=== PATIENT | female | born 1970 | race Caucasian/White ===

== ENCOUNTER 2016-10-02 15:50 | Emergency (ER) | payer OTHER, BC ==
[2016-10-02 16:05] VITALS: TEMP 99.2
[2016-10-02] MEDS ORDERED: traMADol 50 MG TAB PO STA (16:22)
[2016-10-02] MEDS ORDERED: DIAZEPAM 5 MG TAB PO STA (16:22)
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
--- NOTE | 2016-10-02 18:51 | XR ---
EXAMINATION TYPE: XR thoracic spine complete DATE OF EXAM: 10/02/2016 COMPARISON: NONE HISTORY: Pain TECHNIQUE: 3 views FINDINGS: Vertebra have normal spacing and alignment. Posterior elements are intact. There is no para spinal mass. IMPRESSION: Normal thoracic spine.
[2016-10-02 19:21] VITALS: BP 138/95; PULSE 70; RESP 18
== END 2016-10-02 19:21 | disposition home or self-care (01) ==
LOC: EC 15:50
DX: S09.93XA Unspecified injury of face, initial encounter (principal); M54.2 Cervicalgia; R51 Headache; M54.6 Pain in thoracic spine; Z79.899 Other long term (current) drug therapy; Z88.6 Allergy status to analgesic agent; V89.2XXA Person injured in unspecified motor-vehicle accident, traffic, initial encounter; Y92.89 Other specified places as the place of occurrence of the external cause
CPT/HCPCS: 70450; 72072; 72125; 99284

== ENCOUNTER → 2018-03-11 | Outpatient (CLI) | payer BC ==
--- NOTE | 2018-03-17 10:20 | MM ---
Reason for exam: screening (asymptomatic). Last mammogram was performed 3 years and 11 months ago. History: Family history of breast cancer in maternal grandmother and breast cancer in mother at age 79. Physical Findings: A clinical breast exam by your physician is recommended on an annual basis and results should be correlated with mammographic findings. MG 3D Screening Mammo W/Cad Bilateral CC and MLO view(s) were taken. Prior study comparison: April 16, 2014, bilateral MG screening mammo w CAD. January 03, 2012, bilateral digital screening mammo w/CAD. The breast tissue is heterogeneously dense. This may lower the sensitivity of mammography. No significant changes when compared with prior studies. ASSESSMENT: Negative, BI-RAD 1 RECOMMENDATION: Routine screening mammogram of both breasts in 1 year.
== END ==
LOC: RADMAMWWP 16:32
PROVIDERS: ATTEND Obstetrics & Gynecology
DX: Z12.31 Encounter for screening mammogram for malignant neoplasm of breast (principal)
CPT/HCPCS: 77063; 77067

== ENCOUNTER → 2019-12-18 | Outpatient (CLI) | payer OTHER ==
--- NOTE | 2019-12-18 15:55 | XR ---
EXAMINATION TYPE: XR chest 2V DATE OF EXAM: 12/18/2019 COMPARISON: NONE HISTORY: Shortness of breath TECHNIQUE: Frontal and lateral views of the chest are obtained. FINDINGS: Scattered senescent parenchymal changes noted. No evidence for infiltrate. No evidence for atelectasis. Heart size is stable. Mediastinal structures are stable and grossly unremarkable. No evidence for hilar prominence. Degenerative changes dorsal spine. IMPRESSION: 1. No evidence for acute pulmonary disease.
[2019-12-18 16:09] LABS: Appearance,Urine Clear (Clear); Bilirubin,Urine Negative (Negative); Blood,Urine Negative (Negative); Color,Urine Yellow; Glucose,Urine (UA) Negative (Negative); Hyaline Casts,Urine 1 /lpf (0-2); Ketones,Urine Negative (Negative); Leukocyte Esterase,Urine Small (Negative); Mucus,Urine Occasional /hpf; Nitrite,Urine Negative (Negative); Protein,Urine Negative (Negative); RBC,Urine 1 /hpf (0-5); Specific Gravity,Urine 1.023 (1.001-1.035); Squamous Epithelial Cell,Urine 2 /hpf (0-4); Urobilinogen,Urine <2.0 mg/dL (<2.0); WBC,Urine 1 /hpf (0-5)
[2019-12-18 16:23] LABS: Basophils % (A) 0 %; Eosinophils # (A) 0.1 k/uL (0-0.7); Eosinophils % (A) 1 %; HCT 38.2 % (34.0-46.0); HGB 12.3 gm/dL (11.4-16.0); Lymphocytes # (A) 2.4 k/uL (1.0-4.8); Lymphocytes % (A) 25 %; MCH 29.4 pg (25.0-35.0); MCHC 32.2 g/dL (31.0-37.0); MCV 91.3 fL (80.0-100.0); Mean Platelet Volume 7.1; Monocytes # (A) 0.4 k/uL (0-1.0); Monocytes % (A) 4 %; Neutrophils # (A) 6.6 k/uL (1.3-7.7); Neutrophils % (A) 68 %; Platelet Count 341 k/uL (150-450); RBC 4.19 m/uL (3.80-5.40); RDW 12.7 % (11.5-15.5); WBC 9.7 k/uL (3.8-10.6)
[2019-12-18 23:53] LABS: African American GFR (CKD) 86.4 (60.0-200.0); Albumin 4.2 g/dL (3.80-4.90); Albumin/Globulin Ratio 1.56 (1.60-3.17); Anion Gap 8.5 mmol/L (4.00-12.00); BUN/Creat Ratio 12.22 Ratio (12.00-20.00); Calcium 9.1 mg/dL (8.7-10.3); Carbon Dioxide 24.5 mmol/L (21.6-31.8); Globulin 2.7 g/dL (1.6-3.3); Non-African American GFR(CKD) 74.6 (60.0-200.0); Potassium 4.3 mmol/L (3.5-5.5); Total Bilirubin 0.2 mg/dL (0.2-1.2); Total Protein 6.9 g/dL (6.2-8.2)
[2019-12-19 02:29] LABS: INR 1.01 (0.90-1.11); Partial Thromboplastin Time 27.6 sec (24.7-29.9); Prothrombin Time 10.8 sec (9.9-11.9)
== END | disposition home or self-care (01) ==
LOC: LABWHC1 15:08
PROVIDERS: ATTEND Neurological Surgery
DX: G93.5 Compression of brain (principal)
CPT/HCPCS: 36415; 71046; 80053; 81001; 85025; 85610; 85730; 93005

== ENCOUNTER → 2021-02-14 | Outpatient (CLI) | payer OTHER ==
--- NOTE | 2021-02-16 10:33 | MM ---
Reason for exam: screening (asymptomatic). Last mammogram was performed 2 years and 11 months ago. History: Family history of breast cancer in maternal grandmother and breast cancer in mother at age 79. Physical Findings: A clinical breast exam by your physician is recommended on an annual basis and results should be correlated with mammographic findings. MG 3D Screening Mammo W/Cad Bilateral CC and MLO view(s) were taken. Prior study comparison: March 11, 2018, bilateral MG 3d screening mammo w/cad. April 16, 2014, bilateral MG screening mammo w CAD. The breast tissue is heterogeneously dense. This may lower the sensitivity of mammography. No significant changes when compared with prior studies. ASSESSMENT: Benign, BI-RAD 2 RECOMMENDATION: Routine screening mammogram of both breasts in 1 year.
== END | disposition home or self-care (01) ==
LOC: RADMAMWWP 15:55
PROVIDERS: ATTEND Obstetrics & Gynecology
DX: Z12.31 Encounter for screening mammogram for malignant neoplasm of breast (principal); Z80.3 Family history of malignant neoplasm of breast
CPT/HCPCS: 77063; 77067

== ENCOUNTER → 2022-08-06 | Outpatient (CLI) | payer OTHER ==
--- NOTE | 2022-08-06 09:13 | US ---
EXAMINATION TYPE: US abdomen complete DATE OF EXAM: 08/06/2022 COMPARISON: NONE CLINICAL INDICATION: Female, 52 years old with history of R1011 ABD PAIN; RUQ pain for 3-4 weeks, lexie sea TECHNIQUE: Multiple sonographic images of the abdomen are obtained. FINDINGS: EXAM MEASUREMENTS: Liver Length: 14.7 cm Gallbladder Wall: 0.2 cm CBD: 0.3 cm Spleen: 9.4 cm Right Kidney: 10.7 x 4.2 x 4.2 cm Left Kidney: 11.0 x 5.2 x 5.0 cm Pancreas: Tail obscured by overlying bowel gas Liver: 2 hyperechoic areas = 2.7 x 2.3 x 2.2cm and 2.3 x 2.1 x 2.1cm Gallbladder: multiple stones Evidence for sonographic Whittaker's sign: no CBD: limited evaluation Spleen: wnl Right Kidney: no evidence of hydronephrosis Left Kidney: no evidence of hydronephrosis Upper IVC: wnl Abd Aorta: wnl The intrahepatic portion of the IVC and proximal abdominal aorta are within normal limits. Common bi le duct is unremarkable. The visualized portions of the pancreas are homogenous. The spleen is unre markable. Kidneys are symmetric and free of hydronephrosis. No renal lesions are seen. IMPRESSION: 1. Hyperechoic hepatic lesions likely reflect hemangiomas. This can be confirmed with a CT of the abd omen utilizing hemangioma protocol. 2. Multiple gallstones.
--- NOTE | 2022-08-06 11:49 | BD ---
EXAMINATION TYPE: Axial Bone Density DATE OF EXAM: 08/06/2022 CLINICAL HISTORY: 52 years old Female. ICD-10 CODE: N951 POST AURELIA SYMPT Height: 63 in Weight: 195 lbs RISK FACTORS HISTORY OF: Active: yes Diet low in dairy products/other sources of calcium: yes If Premenopausal, do you have irregular periods: yes MEDICATIONS: Additional Medications: calcium, multi vit, gabapentin, EXAM MEASUREMENTS: Bone mineral densitometry was performed using the [employer] System. Bone mineral density as measured about the Lumbar spine is: ----- L1-L4(G/cm2): 1.191 T Score Values are as follows: ----- L1: 0.0 ----- L2: -0.3 ----- L3: 0.3 ----- L4: 0.1 ----- L1-L4: 0.1 Z Score Values are as follows: ----- L1: -0.1 ----- L2: -0.4 ----- L3: 0.2 ----- L4: 0.0 ----- L1-L4: 0.0 Bone mineral density baseline Bone mineral density about the R hip (g/cm2): 1.016 Bone mineral density about the L hip (g/cm2): 1.028 T Score values are as follows: -----R Neck: -1.0 -----L Neck: -0.7 -----R Total: 0.1 -----L Total: 0.2 Z Score values are as follows: -----R Neck: -0.6 -----L Neck: -0.2 -----R Total: 0.1 -----L Total: 0.2 Bone mineral density baseline FRAX%s: The graph provided illustrates a 4.9% chance for a major osteoporotic fx and a 0.2% chance fo r the hips probability for fx in 10 years time. IMPRESSION: Normal (Values between +1 and -1 indicate normal bone mass). Consider repeating this study in 5 year s or sooner if there is some new clinical indication. NOTE: T-SCORE=SD OF THE YOUNG ADULT MEAN.
--- NOTE | 2022-08-07 09:52 | MM ---
Reason for Exam: Screening (asymptomatic). Last mammogram was performed 1 year(s) and 6 month(s) ago. Patient History: Menarche at age 12. First Full-Term at age 25. Maternal grandmother had breast cancer. Mother had breast cancer, age 79. Last menstrual period: Risk Values: Meredith 5 year model risk: 2.2%. NCI Lifetime model risk: 16.1%. Prior Study Comparison: 04/16/2014 Bilateral Screening Mammogram, [facility]. 03/11/2018 Bilateral Screening Mammogram, [facility]. 02/14/2021 Bilateral Screening Mammogram, [facility]. Tissue Density: The breast tissue is heterogeneously dense. This may lower the sensitivity of mammography. Findings: Analyzed By CAD. Pattern appears symmetrical and stable. No significant interval changes are evident. Chronic nodularity is present within the mid right breast. There is a well-circumscribed new rounded density within the 2:00 position mid left breast measuring 1.1 cm 5 cm from the nipple. Ultrasound is recommended. Overall Assessment: Incomplete: need additional imaging evaluation, BI-RAD 0 Management: Diagnostic Breast Ultrasound of the left breast. A negative mammogram report should not preclude additional follow up of suspicious palpable abnormalities. Patient should continue monthly self breast exam. A clinical breast exam by your physician is recommended on an annual basis and results should be correlated with mammographic findings. Electronically signed and approved by: Myron Guzman D.O. Radiologis
== END | disposition home or self-care (01) ==
LOC: RADUSWWP 07:37
PROVIDERS: ATTEND Family Medicine
DX: Z12.31 Encounter for screening mammogram for malignant neoplasm of breast (principal); N95.1 Menopausal and female climacteric states; R10.11 Right upper quadrant pain; Z80.3 Family history of malignant neoplasm of breast
CPT/HCPCS: 76700; 77063; 77067; 77080

== ENCOUNTER → 2022-08-14 | Outpatient (CLI) | payer OTHER ==
--- NOTE | 2022-08-14 11:34 | USB ---
Reason for Exam: Additional evaluation requested from abnormal screening. Patient History: Menarche at age 12. First Full-Term at age 25. Maternal grandmother had breast cancer. Mother had breast cancer, age 79. Risk Values: Meredith 5 year model risk: 2.2%. NCI Lifetime model risk: 16.1%. Technique: Method: Targeted. Prior Study Comparison: 03/11/2018 Bilateral Screening Mammogram, [facility]. 02/14/2021 Bilateral Screening Mammogram, [facility]. 08/06/2022 Bilateral MG 3D screening mammo w/cad, [facility]. Findings: The upper outer quadrant of the left breast, the axilla of the left breast and the retroareolar of the left breast were scanned. There is a mildly complex cystic lesion at the left 2:00 position 3 cm from the nipple measuring 1.1 x 1.0 cm. No solid masses seen. There is a prominent left axillary lymph node measuring 3.0 x 1.1 cm which could be reactive in nature. Correlate with patient history. Additional follow-up is recommended.. Overall Assessment: Probably benign, BI-RAD 3 Management: Diagnostic Mammogram of the left breast in 6 months. Diagnostic Breast Ultrasound of the left breast in 6 months. A clinical breast exam by your physician is recommended on an annual basis and results should be correlated with mammographic findings. This exam should not preclude additional follow-up of suspicious palpable abnormalities. Results were given to the patient verbally at the time of exam. Electronically signed and approved by: Alvin Montiel M.D. Radiologis
== END | disposition home or self-care (01) ==
LOC: RADUSWWP 10:58
PROVIDERS: ATTEND Family Medicine
DX: R92.8 Other abnormal and inconclusive findings on diagnostic imaging of breast (principal); Z80.3 Family history of malignant neoplasm of breast

== ENCOUNTER 2022-10-10 10:15 | Day surgery (SDC) | payer OTHER ==
[2022-10-10] MEDS ORDERED: PROPOFOL 10 MG/ML 20 ML VIAL IV ONE (10:50)
[2022-10-10] MEDS ORDERED: LIDOCAINE 2% INJ 20 MG/ML (2 ML VIAL) ONE (10:50)
[2022-10-10] MEDS ORDERED: LACTATED RINGERS 1,000 ML IV ONE (10:50)
[2022-10-10 10:52] VITALS: TEMP 96.9
--- NOTE | 2022-10-10 11:26 | P.GSHP ---
History of Present Illness H&P Date: 10/10/22 CHIEF COMPLAINT: GERD and colon screen HISTORY OF PRESENT ILLNESS: The patient is a 52-year-old female who presents with gastroesophageal reflux disease and need for colon screen. Upper and lower endoscopy were offered for further evaluation and management. PAST MEDICAL HISTORY: Please see list. PAST SURGICAL HISTORY: Please see list. MEDICATIONS: Please see list. ALLERGIES: Please see list. SOCIAL HISTORY: No illicit drug use FAMILY HISTORY: No reports of Crohn disease or ulcerative colitis. REVIEW OF ORGAN SYSTEMS: CONSTITUTIONAL: No reports of fevers or chills. GI: Denies any blood in stools or constipation. PHYSICAL EXAM: VITAL SIGNS: Stable GENERAL: Well-developed pleasant in no acute distress. HEENT: No scleral icterus. Extraocular movements grossly intact. Moist buccal mucosa. NECK: Supple without lymphadenopathy. CHEST: Unlabored respirations. Equal bilateral excursions. CARDIOVASCULAR: Regular rate and rhythm. Distal 2+ pulses. ABDOMEN: Soft, nondistended. MUSCULOSKELETAL: No clubbing, cyanosis, or edema. ASSESSMENT: 1. Gastroesophageal reflux disease 2. Colon screen. PLAN: 1. Recommend proceeding with an upper and lower endoscopy Past Medical History Additional Past Medical History / Comment(s): chiari malformation History of Any Multi-Drug Resistant Organisms: None Reported Past Surgical History: No Surgical Hx Reported Past Psychological History: No Psychological Hx Reported Past Alcohol Use History: None Reported Past Drug Use History: None Reported Medications and Allergies Home Medications Medication Instructions Recorded Confirmed Type diazePAM [Valium] 5 mg PO BID PRN #8 tab 10/02/16 10/10/22 Rx traMADol HCL [Ultram] 50 mg PO Q8HR PRN #15 tab 10/02/16 10/10/22 Rx Gabapentin 300 mg PO TID 10/10/22 10/10/22 History Gabapentin [Neurontin] 100 mg PO TID 10/10/22 10/10/22 History Ibuprofen [Motrin] 800 mg PO Q8H 10/10/22 10/10/22 History Allergies Allergy/AdvReac Type Severity Reaction Status Date / Time acetaminophen Allergy Unknown Verified 10/10/22 10:39 [From Excedrin Migraine] aspirin Allergy Unknown Verified 10/10/22 10:39 [From Excedrin Migraine] Surgical - Exam Vital Signs Temp Pulse Resp BP Pulse Ox 96.9 F L 89 16 161/83 95 10/10/22 10:50 10/10/22 10:50 10/10/22 10:50 10/10/22 10:50 10/10/22 10:50
[2022-10-10 11:27] VITALS: RESP 18
[2022-10-10 11:49] VITALS: BP 145/91; PULSE 67
--- NOTE | 2022-10-10 12:00 | P.PCN ---
Date of Procedure: 10/10/22 Description of Procedure: PREOPERATIVE DIAGNOSIS: Colonoscopy screening POSTOPERATIVE DIAGNOSIS: Gastrointestinal bleeding Tubular adenoma transverse colon OPERATION: Colonoscopy to the ileocecal valve and appendiceal orifice, cecum Colonoscopy with hot snare polypectomy SURGEON: Olivia Lackey MD. ANESTHESIA: MAC. INDICATIONS: The patient is an 52-year-old [place] who presents for colonoscopy screening. Benefits and risks were described and informed consent was obtained. DESCRIPTION OF PROCEDURE: The patient had undergone Sutab prep. The patient had been brought into the operating room and laid in the left lateral decubitus position. After adequate intravenous sedation, the rectum was examined with 2% lidocaine jelly. No external hemorrhoids were encountered. The rectal tone was within normal limits. No lesions were palpated in the rectal vault. An Olympus colonoscope was advanc ed until the cecum, ileocecal valve and appendiceal orifice were clearly viewed. The prep was excellent. No sigmoid diverticulosis was encountered. Colonic polyps were found and removed. No evidence of focal colitis was found. Retroflexion of the scope demonstrated grade 1 internal hemorrhoids without active bleeding or inflammation. The colon was desufflated. The patient had tolerated the procedure well. Withdrawal time was over 6 minutes. FINDINGS: Aronchick preparation quality scale 1 (1-5) Internal hemorrhoids, grade 1 No external hemorrhoids Active GI bleed from upper GI source No arteriovenous malformations. No sigmoid diverticulosis Removal of 1 polyp: - Snare polypectomy transverse colon, 10 mm tubulovillous adenoma No focal colitis. RECOMMENDATIONS: Repeat colonoscopy 3 years, 2025 Plan - Discharge Summary New Discharge Prescriptions: New Sucralfate [Carafate] 1 gm PO BID #30 tablet Pantoprazole [Protonix] 40 mg PO DAILY #14 tab Continue diazePAM [Valium] 5 mg PO BID PRN #8 tab PRN Reason: back spasm traMADol HCL [Ultram] 50 mg PO Q8HR PRN #15 tab PRN Reason: Pain Gabapentin [Neurontin] 100 mg PO TID Gabapentin 300 mg PO TID Discontinued Ibuprofen [Motrin] 800 mg PO Q8H Discharge Medication List diazePAM [Valium] 5 mg PO BID PRN #8 tab 10/02/16 [Rx] traMADol HCL [Ultram] 50 mg PO Q8HR PRN #15 tab 10/02/16 [Rx] Gabapentin 300 mg PO TID 10/10/22 [History] Gabapentin [Neurontin] 100 mg PO TID 10/10/22 [History] Pantoprazole [Protonix] 40 mg PO DAILY #14 tab 10/10/22 [Rx] Sucralfate [Carafate] 1 gm PO BID #30 tablet 10/10/22 [Rx] Follow up Appointment(s)/Referral(s): Olivia Lackey MD [STAFF PHYSICIAN] - 10/19/22 (For cholecystectomy) Patient Instructions/Handouts: *Surgery [facility] - (Anesthesia) Discharge Instructions Outpatient Surgery, Peptic Ulcer (DC), Diet for Stomach Ulcers and Gastritis (GEN), Colorectal Polyps (GEN) Activity/Diet/Wound Care/Special Instructions: Repeat colonoscopy in 3 years, 2025 Discharge Disposition: HOME SELF-CARE
--- NOTE | 2022-10-10 12:02 | P.PCN ---
Date of Procedure: 10/10/22 Description of Procedure: PREOPERATIVE DIAGNOSIS: Gastroesophageal reflux disease. POSTOPERATIVE DIAGNOSIS: Acute gastric ulcers with bleeding Acute gastritis of bleeding OPERATION: Esophagogastroduodenoscopy with biopsies along antrum and duodenum SURGEON: Olivia Lackey MD ANESTHESIA: MAC. INDICATIONS: The patient is a 52-year-old female who presents with reflux disease. Benefits and risks of the procedure were described. Informed consent was obtained. DESCRIPTION: The patient was brought into the endoscopy suite and laid in the left lateral decubitus position. An Olympus gastroscope was passed along the posterior oropharynx down to the distal esophagus where the squamocolumnar junction was encountered at 36 cm from the incisors. The stomach was entered and no bile reflux was found. Additional findings are listed below. Moderate acute gastric bleeding was identified from [place] gastric ulcers and diffuse gastritis of the antrum. Biopsies with cold forceps were obtained of the antrum. The first through third portion of the duodenum was examined. Retroflexion of the scope confirmed Hill grade 3 lower esophageal valve. The squamocolumnar junction demonstrated LA grade B erosive esophagitis. The stomach was desufflated. The patient tolerated the procedure well. FINDINGS: Squamocolumnar junction 36 cm from the incisors. Diaphragmatic hiatus at 36 cm. Hill grade 4 lower esophageal valve. LA grade B erosive esophagitis. Biopsies obtained of the duodenum. Acute gastritis of bleeding Acute gastric ulcers or bleeding Chronic gastritis with biopsies obtained. RECOMMENDATIONS: Discontinue NSAIDs Omeprazole 40 mg daily for 2 weeks Carafate 1 g twice a day for 2 weeks
[2022-10-10 12:58] LABS: Basophils % (A) 0 %; Eosinophils # (A) 0.1 k/uL (0-0.7); Eosinophils % (A) 1 %; HCT 38.7 % (34.0-46.0); HGB 12.8 gm/dL (11.4-16.0); Lymphocytes # (A) 1.5 k/uL (1.0-4.8); Lymphocytes % (A) 23 %; MCH 30.4 pg (25.0-35.0); MCHC 33.1 g/dL (31.0-37.0); MCV 91.8 fL (80.0-100.0); Mean Platelet Volume 7.6; Monocytes # (A) 0.3 k/uL (0-1.0); Monocytes % (A) 5 %; Neutrophils # (A) 4.6 k/uL (1.3-7.7); Neutrophils % (A) 70 %; Platelet Count 239 k/uL (150-450); RBC 4.22 m/uL (3.80-5.40); RDW 12.8 % (11.5-15.5); WBC 6.6 k/uL (3.8-10.6)
[2022-10-10 13:13] LABS: ALT 28 U/L (4-34); AST 28 U/L (14-36); African American GFR (CKD) >90 (>60 ml/min/1.73 sqM); Albumin 4.1 g/dL (3.5-5.0); Alkaline Phosphatase 169 U/L (38-126); Anion Gap 10 mmol/L; Blood Urea Nitrogen 12 mg/dL (7-17); Calcium 8.9 mg/dL (8.4-10.2); Carbon Dioxide 23 mmol/L (22-30); Chloride 105 mmol/L (98-107); Glucose 97 mg/dL (74-99); Non-African American GFR(CKD) >90 (>60 ml/min/1.73 sqM); Potassium 4.7 mmol/L (3.5-5.1); Sodium 138 mmol/L (137-145); Total Bilirubin 0.7 mg/dL (0.2-1.3); Total Protein 7.5 g/dL (6.3-8.2)
== END 2022-10-10 12:39 | disposition home or self-care (01) ==
LOC: ORWHC2ENDO 10:15
PROVIDERS: ATTEND Surgery Plastic and Reconstructive Surgery
DX: Z12.11 Encounter for screening for malignant neoplasm of colon (principal); D12.4 Benign neoplasm of descending colon; K29.00 Acute gastritis without bleeding; K21.00 Gastro-esophageal reflux disease with esophagitis, without bleeding; K64.0 First degree hemorrhoids; Z79.899 Other long term (current) drug therapy; Z98.890 Other specified postprocedural states
CPT/HCPCS: 93005; 81025; 88305; 80053; 85025; 45385; 43239; J2704; J2001

== ENCOUNTER 2022-10-19 06:16 | Day surgery (SDC) | payer OTHER ==
[2022-10-16 14:32] VITALS: BMI 34.2
[~2022-10-19 06:16] MED LIST: ACETAMINOPHEN TAB 500 MG TAB PO PRN; HEPARIN SODIUM,PORCINE/PF 5,000 UNIT/0.5 ML SYRINGE SQ PRN; ONDANSETRON 4 MG/2 ML VIAL IVP PRN
[2022-10-19] MEDS ORDERED: MIDAZOLAM 2 MG/2 ML VIAL IV PRN (06:43)
[2022-10-19] MEDS ORDERED: LACTATED RINGERS 1,000 ML IV SCH (06:43)
--- NOTE | 2022-10-19 06:49 | P.GSHP ---
History of Present Illness H&P Date: 10/19/22 CHIEF COMPLAINT: Cholecystitis HISTORY OF PRESENT ILLNESS: The patient is a 52-year-old female who presents with history of epigastric including right upper quadrant abdominal pain. She underwent diagnostic studies for her gallbladder. Separately her clinical picture was consistent with cholecystitis. Now she presents for surgical intervention. PAST MEDICAL HISTORY: Please see list PAST SURGICAL HISTORY: Please see list MEDICATIONS: Please see list ALLERGIES: Please see list SOCIAL HISTORY: Please see list FAMILY HISTORY: Please see list REVIEW OF ORGAN SYSTEMS: CONSTITUTIONAL: No reports of fevers or chills. HEENT: Denies any troubles with the vision or hearing. ENDOCRINE: No reports of hypothyroidism. No diabetes. RESPIRATORY: No recent pneumonias. CARDIOVASCULAR: Denies chest pain or palpitations GI: No blood in stools or constipation. MUSCULOSKELETAL: Has occasional joint pain including back pain. NEURO: No seizure disorders or headaches. No recent stroke. PSYCH: No depression or suicidal ideation. GENITOURINARY: No active blood in urine. No urinary hesitancy. HEMATOLOGIC: No personal or family history of DVTs or pulmonary emboli. SKIN: No skin cancer. PHYSICAL EXAM: VITAL SIGNS: Afebrile vital signs stable GENERAL: Well-developed pleasant in no acute distress. HEENT: No scleral icterus. Extraocular movements grossly intact. Moist buccal mucosa. NECK: Supple without lymphadenopathy. CHEST: Unlabored respirations. Equal bilateral excursions. CARDIOVASCULAR: Regular rate regular rhythm rhythm. Distal 2+ pulses. ABDOMEN: Soft, nondistended. Tender along the epigastrium and right upper quadrant. MUSCULOSKELETAL: No clubbing, cyanosis, or edema. NEURO: Cranial nerves II to XII within normal limits. No focal or lateralizing signs. PSYCH: Alert and oriented to person, place and time. SKIN: Well-perfused good skin turgor. ASSESSMENT: 1. Epigastric and right upper quadrant abdominal pain 2. Chronic cholecystitis 3. Symptomatic gallstones. PLAN: 1. Will need a robotic cholecystectomy possible open. Benefits and risks were described. 2. Heparin for DVT prophylaxis 5000 units. 3. Antibiotic prophylaxis. 4. CBC and CMP on day of procedure 5. Non-narcotic pre and post op pain management reviewed. 6. Indocyanine green for biliary imaging. Past Medical History Past Medical History: Asthma, GERD/Reflux Additional Past Medical History / Comment(s): chiari malformation with surgery 2019., mild asthma (no rx), trigeminal neuralgia., egd & colonoscopy 10/10/22 and states bleeding ulcers, gastritis and colon polyps., gall bladder pain, chiropractor for occasional back pain. History of Any Multi-Drug Resistant Organisms: None Reported Past Surgical History: No Surgical Hx Reported Additional Past Surgical History / Comment(s): COLONOSCOPY, EGD, chiari malformation surgery (dec 2019) Past Anesthesia/Blood Transfusion Reactions: No Reported Reaction, Motion Sickness Past Psychological History: Anxiety, Depression Smoking Status: Never smoker Past Alcohol Use History: Rare Past Drug Use History: None Reported - Past Family History Mother Family Medical History: Cancer Additional Family Medical History / Comment(s): breast cancer Father Family Medical History: Cancer Additional Family Medical History / Comment(s): colon and stomach cancer Daughter(s) Family Medical History: Cancer Additional Family Medical History / Comment(s): neuroblastoma Medications and Allergies Home Medications Medication Instructions Recorded Confirmed Type Gabapentin 600 mg PO TID 10/10/22 10/16/22 History Gabapentin [Neurontin] 100 mg PO TID 10/10/22 10/16/22 History Pantoprazole [Protonix] 40 mg PO DAILY #14 tab 10/10/22 10/16/22 Rx Sucralfate [Carafate] 1 gm PO BID #30 tablet 10/10/22 10/16/22 Rx traMADol HCL [Ultram] 50 mg PO DIRECTED PRN 10/16/22 10/16/22 History Allergies Allergy/AdvReac Type Severity Reaction Status Date / Time acetaminophen Allergy Excedrin Verified 10/16/22 14:18 [From Excedrin Migraine] makes her jittery aspirin Allergy Excedrin Verified 10/16/22 14:18 [From Excedrin Migraine] makes her jittery
[2022-10-19] MEDS ORDERED: INDOCYANINE GREEN 25 MG VIAL IV STA (07:08)
[2022-10-19] MEDS ORDERED: DEXAMETHASONE SOD PHOSPHATE 4 MG/ML 1 ML VIAL IVP ONE (07:13)
[2022-10-19] MEDS ORDERED: SCOPOLAMINE 1 MG/72 HR PATCH TRANSDERM ONE (07:14)
[2022-10-19] MEDS ORDERED: fentaNYL (PF) 50 MCG/ML 2 ML AMP ONE (07:32)
[2022-10-19] MEDS ORDERED: GLYCOPYRROLATE 0.2 MG/ML 2 ML VIAL ONE (07:32)
[2022-10-19] MEDS ORDERED: PROPOFOL 10 MG/ML 20 ML VIAL IV ONE (07:32)
[2022-10-19] MEDS ORDERED: SUCCINYLCHOLINE CHLORIDE 200 MG/10 ML VIAL IV ONE (07:32)
[2022-10-19] MEDS ORDERED: NEOSTIGMINE 1 MG/ML 10 ML VIAL ONE (07:32)
[2022-10-19] MEDS ORDERED: MIDAZOLAM 2 MG/2 ML VIAL ONE (07:32)
[2022-10-19] MEDS ORDERED: ROCURONIUM 10 MG/ML (5 ML VIAL) IV ONE (07:32)
[2022-10-19 07:42] LABS: Basophils % (A) 0 %; Eosinophils # (A) 0.2 k/uL (0-0.7); Eosinophils % (A) 3 %; HGB 12.7 gm/dL (11.4-16.0); Lymphocytes # (A) 2.2 k/uL (1.0-4.8); Lymphocytes % (A) 31 %; MCHC 32.6 g/dL (31.0-37.0); MCV 91.9 fL (80.0-100.0); Mean Platelet Volume 7.4; Monocytes # (A) 0.4 k/uL (0-1.0); Monocytes % (A) 6 %; Neutrophils # (A) 4.2 k/uL (1.3-7.7); Neutrophils % (A) 58 %; Platelet Count 256 k/uL (150-450); RBC 4.25 m/uL (3.80-5.40); RDW 12.7 % (11.5-15.5); WBC 7.2 k/uL (3.8-10.6)
[2022-10-19] MEDS ORDERED: BUPIVACAINE (PF) 0.25% 30 ML VIAL SQ ONE (07:56)
[2022-10-19 08:02] LABS: ALT 27 U/L (4-34); African American GFR (CKD) >90 (>60 ml/min/1.73 sqM); Albumin 4.1 g/dL (3.5-5.0); Anion Gap 12 mmol/L; Blood Urea Nitrogen 13 mg/dL (7-17); Calcium 8.7 mg/dL (8.4-10.2); Carbon Dioxide 20 mmol/L (22-30); Chloride 107 mmol/L (98-107); Glucose 101 mg/dL (74-99); Non-African American GFR(CKD) >90 (>60 ml/min/1.73 sqM); Sodium 139 mmol/L (137-145); Total Bilirubin 0.6 mg/dL (0.2-1.3); Total Protein 7.7 g/dL (6.3-8.2)
[2022-10-19 08:10] LABS: AST 42 U/L (14-36); Alkaline Phosphatase 147 U/L (38-126); Potassium 4.5 mmol/L (3.5-5.1)
[2022-10-19 08:49] VITALS: TEMP 96.8
[2022-10-19] MEDS: HYDROmorphone 0.5 MG/0.5 ML SYRINGE IVP PRN ×2 (08:57→09:21)
--- NOTE | 2022-10-19 09:05 | P.OP ---
Date of Procedure: 10/19/22 Description of Procedure: SURGEON: OLIVIA LACKEY MD PREOPERATIVE DIAGNOSES: 1. Symptomatic gallstones 2. Right upper quadrant abdominal pain 3. Obesity due to excess calories, BMI 35.4 4. Generalized anxiety disorder 5. Depressive disorder 6. Gastric ulcers 7. Chiari malformation 8. Trigeminal neuralgia 9. Chronic pain syndrome 10. Motion sickness POSTOPERATIVE DIAGNOSES: 1. Symptomatic gallstones 2. Right upper quadrant abdominal pain 3. Obesity due to excess calories, BMI 35.4 4. Generalized anxiety disorder 5. Depressive disorder 6. Gastric ulcers 7. Chiari malformation 8. Trigeminal neuralgia 9. Chronic pain syndrome 10. Motion sickness 11. Peritoneal adhesions, right upper quadrant OPERATION: 1. Robotic-assisted da Nesha Xi laparoscopic lysis of adhesions 1. Robotic-assisted da Nesha Xi laparoscopic cholecystectomy, multiport with FIREFLY ESTIMATED BLOOD LOSS: 10 mL. SPECIMENS REMOVED: Gallbladder. COMPLICATIONS: None. OPERATIVE FINDINGS: 1. Moderate scarring over entire gallbladder with peritoneal adhesions, pericholecystic with features of chronic cholecystitis 2. Multiple gallstones 3. No presence of hepatomegaly or fatty liver disease INDICATIONS: The patient is a 52-year-old female who presents with symptomatic gallstones. Robotic assisted laparoscopic approach was described. Benefits and risks of the procedure including but not limited to bleeding, infection, injury to the biliary tree was described. Informed consent was obtained. DESCRIPTION OF PROCEDURE: Patient was brought to the operating room, placed in supine position. After general induction, the abdomen had been prepped and draped in standard sterile fashion. The robotic da Nesha XI system was primed. After a timeout protocol was performed, the patient had been prepped and draped in standard sterile fashion. The patient was injected with indocyanine green. A 5 mm 0 degrees laparoscopic trocar entry was performed along the left upper quadrant. The abdomen insufflated to 15 mmHg pressure which was tolerated well. Diagnostic laparoscopy demonstrated no injury to bowel viscera or mesentery. The liver surface was unremarkable. Next, two 8 mm robotic ports were placed along the right upper abdomen. The camera 8-mm port was maintained along the epigastrium. Another 12 mm port was placed along the left upper abdominal wall after exchanging the 5 mm port. Please note that the ports were placed at least 10 to 15 cm away from the target anatomy of the gallbladder. The robot was docked along the left lateral abdomen. The patient was repositioned in reverse Trendelenburg position. Using a grasper for arm 3, a grasper for arm 4, including hook cautery for arm 1, the robotic system was docked and primed as described. Instruments were interchanged by the marketing assistant including hook cautery, Bovie cautery and clip appliers. I had sat at the console. The gallbladder was scarred with peritoneal adhesions. Lysis of adhesions was performed to free the gallbladder from the surrounding tissues. Next attention was brought to the infundibulum and cystic structures. The infundibulum and cystic duct were dissected free from surrounding tissues. The cystic duct was isolated. FIREFLY was used to identify the cystic artery and cystic structures. A critical view of safety was obtained. Large PLASTIC clips were used throughout the entire case. Using a clip tooth cutter contact wheel, 2 clips were placed at the junction of the infundibulum a nd cystic duct. The cystic duct was divided between clips. Next, the cystic artery was similarly clipped and cauterized. Electro-Bovie cautery was used to remove the gallbladder from the hepatic fossa. Hemostasis was checked and found to be adequate. The robot was undocked. I re-scrubbed into the case. Using a 10 mm Endo Catch bag via the left upper quadrant incision, the specimen was removed from the abdominal cavity. All pneumoperitoneum instruments were evacuated from the abdominal cavity. The incisions were reapproximated using 4-0 Monocryl in an interrupted subcuticular fashion. Fascial defects were less than 8 mm in size. Please note along the trocar sites, local anesthetic was placed as a field block prior to insertion of all instruments. Liquid glue was applied to the skin. At the end of the procedure needle, sponge, and instrument count had been verified correct by the timber management technician. The patient was transferred to postanesthesia care unit in stable condition. Intraoperative films were shared with the patient's family. Plan - Discharge Summary Discharge Rx Participant: No New Discharge Prescriptions: Continue Sucralfate [Carafate] 1 gm PO BID #30 tablet Pantoprazole [Protonix] 40 mg PO DAILY #14 tab traMADol HCL [Ultram] 50 mg PO DIRECTED PRN PRN Reason: Pain Gabapentin [Neurontin] 100 mg PO TID Gabapentin 600 mg PO TID Discharge Medication List Gabapentin 600 mg PO TID 10/10/22 [History] Gabapentin [Neurontin] 100 mg PO TID 10/10/22 [History] Pantoprazole [Protonix] 40 mg PO DAILY #14 tab 10/10/22 [Rx] Sucralfate [Carafate] 1 gm PO BID #30 tablet 10/10/22 [Rx] traMADol HCL [Ultram] 50 mg PO DIRECTED PRN 10/16/22 [History] Follow up Appointment(s)/Referral(s): Olivia Lackey MD [STAFF PHYSICIAN] - 10/24/22 (TELEHEALTH ONLY, calls you between 8 am to 1 pm) Patient Instructions/Handouts: *Surgery [facility] - Laparoscopic Cholecystectomy Discharge Instructions, Low Fat Diet (DC) Activity/Diet/Wound Care/Special Instructions: TELEHEALTH ONLY - DR WILL CALL YOU BETWEEN 8 am to 8 pm Recommend low-fat diet for the next 2 days. No lifting over 10 pounds in 2 weeks until September 28. May shower. No bath tub soaks for two weeks until September 28. Diet as tolerated. Use simethicone and ibuprofen or Aleve scheduled for the next 24-48 hours for best pain relief. Use ice along incisions for today to prevent swelling. Discharge Disposition: HOME SELF-CARE
[2022-10-19] MEDS ORDERED: GLYCOPYRROLATE 0.2 MG/ML 2 ML VIAL IVP ONE (09:15)
[2022-10-19 10:08] VITALS: RESP 16
[2022-10-19 10:31] VITALS: BP 131/76; PULSE 51
== END 2022-10-19 12:04 | disposition home or self-care (01) ==
LOC: OR 06:16
PROVIDERS: ATTEND Surgery Plastic and Reconstructive Surgery
DX: K80.10 Calculus of gallbladder with chronic cholecystitis without obstruction (principal); E66.01 Morbid (severe) obesity due to excess calories; Z68.35 Body mass index [BMI] 35.0-35.9, adult; F41.1 Generalized anxiety disorder; F32.A Depression, unspecified; K25.9 Gastric ulcer, unspecified as acute or chronic, without hemorrhage or perforation; G50.0 Trigeminal neuralgia; G89.4 Chronic pain syndrome; K66.0 Peritoneal adhesions (postprocedural) (postinfection); Z79.899 Other long term (current) drug therapy; J45.909 Unspecified asthma, uncomplicated; K21.9 Gastro-esophageal reflux disease without esophagitis; Z98.890 Other specified postprocedural states; Z80.3 Family history of malignant neoplasm of breast; Z79.82 Long term (current) use of aspirin
CPT/HCPCS: 47563; 81025; 88304; 80053; 85025; J2250; J0330; J1100; J2710; J0690; J2405; J3010; J2704; J1170; J1644

== ENCOUNTER → 2023-02-11 | Outpatient (CLI) | payer OTHER ==
--- NOTE | 2023-02-11 12:16 | USB ---
Reason for Exam: Follow-up at short interval from prior study. Patient History: Menarche at age 12. First Full-Term at age 25. Maternal grandmother had breast cancer. Mother had breast cancer, age 79. Risk Values: Meredith 5 year model risk: 2.2%. NCI Lifetime model risk: 15.8%. Prior Study Comparison: 03/11/2018 Bilateral Screening Mammogram, [facility]. 02/14/2021 Bilateral Screening Mammogram, [facility]. 08/06/2022 Bilateral MG 3D screening mammo w/cad, [facility]. Findings: The upper outer quadrant of the left breast was scanned. Left limited breast ultrasound demonstrates a 0.9 x 1.0 x 0.7cm cystic lesion at 2 o'clock, 3cm from the nipple and a 2.9 x 1.2 x 1.2cm lymph node at the axilla. Stable. Overall Assessment: Benign, BI-RAD 2 Management: Screening Mammogram of both breasts in 6 months. A clinical breast exam by your physician is recommended on an annual basis and results should be correlated with mammographic findings. This exam should not preclude additional follow-up of suspicious palpable abnormalities. Results were given to the patient verbally at the time of exam. Electronically signed and approved by: Lake Turpin DO
--- NOTE | 2023-02-11 12:18 | MM ---
Reason for Exam: Follow-up at short interval from prior study. Last screening mammogram was performed 6 month(s) ago. Patient History: Menarche at age 12. First Full-Term at age 25. Maternal grandmother had breast cancer. Mother had breast cancer, age 79. Risk Values: Meredith 5 year model risk: 2.2%. NCI Lifetime model risk: 15.8%. Prior Study Comparison: 03/11/2018 Bilateral Screening Mammogram, [facility]. 02/14/2021 Bilateral Screening Mammogram, [facility]. 08/06/2022 Bilateral MG 3D screening mammo w/cad, [facility]. Tissue Density: Left: The breast tissue is heterogeneously dense. This may lower the sensitivity of mammography. Findings: Analyzed By CAD. There is a round benign appearing mass in the upper outer left breast, 5cm from the nipple. Decreased in size from 13mm to 9mm. Overall Assessment: Incomplete: need additional imaging evaluation, BI-RAD 0 Management: Diagnostic Breast Ultrasound of the left breast. A clinical breast exam by your physician is recommended on an annual basis and results should be correlated with mammographic findings. This exam should not preclude additional follow-up of suspicious palpable abnormalities. Results were given to the patient verbally at the time of exam. Electronically signed and approved by: Lake Turpin DO
== END | disposition home or self-care (01) ==
LOC: RADMAMWWP 09:32
PROVIDERS: ATTEND Family Medicine
DX: R92.332 Mammographic heterogeneous density, left breast (principal); Z80.3 Family history of malignant neoplasm of breast
CPT/HCPCS: 77061; 77065

== ENCOUNTER → 2023-08-16 | Outpatient (CLI) | payer BC ==
--- NOTE | 2023-08-16 13:32 | MM ---
Reason for Exam: Clinical finding. Last screening mammogram was performed 12 month(s) ago. Patient History: Menarche at age 12. First Full-Term at age 25. Postmenopausal. Maternal grandmother had breast cancer. Mother had breast cancer, age 79. Risk Values: Meredith 5 year model risk: 2.2%. NCI Lifetime model risk: 15.8%. Prior Study Comparison: 02/14/2021 Bilateral Screening Mammogram, [facility]. 08/06/2022 Bilateral MG 3D screening mammo w/cad, [facility]. 08/14/2022 Left US breast workup limited LT, [facility]. 02/11/2023 Left MG 3D diag mammo w/cad LT, [facility]. 02/11/2023 Left US breast LT, [facility]. Tissue Density: The breasts are heterogeneously dense, which may obscure small masses. Findings: Analyzed By CAD. Nodular density right breast upper outer quadrant 8 cm from the nipple measuring approximately 5 to 6 mm. Ultrasound recommended. Nodular density left breast 5 cm from the nipple measuring 4 to 5 mm at the approximate 6 2 to 3:00 position. Ultrasound recommended. Overall Assessment: Incomplete: need additional imaging evaluation, BI-RAD 0 Management: Diagnostic Breast Ultrasound of both breasts. . Results were given to the patient verbally at the time of exam. Patient should continue monthly self-breast exams. A clinical breast exam by your physician is recommended on an annual basis. This exam should not preclude additional follow-up of suspicious palpable abnormalities. Note on Meredith scores and lifetime risk: 1. A Meredith score greater than 3% is considered moderate risk. If this is the case, consider specialist referral to assess eligibility for a risk reducing agent. 2. If overall lifetime risk for the development of breast cancer is 20% or higher, the patient may qualify for future screening with alternating mammogram and breast MRI. Electronically signed and approved by: Alvin Montiel M.D. Radiologis
--- NOTE | 2023-08-16 13:56 | USB ---
Reason for Exam: Follow-up at short interval from prior study. Patient History: Menarche at age 12. First Full-Term at age 25. Postmenopausal. Maternal grandmother had breast cancer. Mother had breast cancer, age 79. Risk Values: Meredith 5 year model risk: 2.2%. NCI Lifetime model risk: 15.8%. Technique: Method: Targeted. Prior Study Comparison: 02/14/2021 Bilateral Screening Mammogram, [facility]. 08/06/2022 Bilateral MG 3D screening mammo w/cad, [facility]. 02/11/2023 Left MG 3D diag mammo w/cad , [facility]. Findings: The upper outer quadrant of both breasts, the axilla of both breasts and the retroareolar of both breasts were scanned. No solid or cystic masses are identified.. Management: Screening Mammogram of both breasts in 1 year. A clinical breast exam by your physician is recommended on an annual basis and results should be correlated with mammographic findings. This exam should not preclude additional follow-up of suspicious palpable abnormalities. Results were given to the patient verbally at the time of exam. Electronically signed and approved by: Alvin Montiel M.D. Radiologis
== END | disposition home or self-care (01) ==
LOC: RADMAMWWP 12:47
PROVIDERS: ATTEND Obstetrics & Gynecology
DX: R92.8 Other abnormal and inconclusive findings on diagnostic imaging of breast (principal); N63.0 Unspecified lump in unspecified breast; Z78.0 Asymptomatic menopausal state; Z80.3 Family history of malignant neoplasm of breast
CPT/HCPCS: 77062; 77066

== ENCOUNTER 2024-08-25 17:52 | Observation (INO) | payer BC ==
[2024-08-25 18:45] LABS: Basophils # (A) 0.06 10*3/uL (0.00-0.10); Basophils % (A) 0.8 %; Eosinophils # (A) 0.09 10*3/uL (0.04-0.35); Eosinophils % (A) 1.2 %; HCT 37.9 % (37.2-46.3); Lymphocytes # (A) 3.03 10*3/uL (0.90-5.00); Lymphocytes % (A) 40.9 %; MCH 29.9 pg (27.0-32.0); MCHC 34.3 g/dL (32.0-37.0); MCV 87.1 fL (80.0-97.0); Mean Platelet Volume 9.7 fL (9.5-12.2); Monocytes % (A) 8.1 %; Neutrophils # (A) 3.61 10*3/uL (1.80-7.70); Neutrophils % (A) 48.7 %; Platelet Count 278 10*3/uL (140-440); RBC 4.35 10*6/uL (4.10-5.20); RDW 13.2 % (11.5-14.5); WBC 7.41 10*3/uL (4.50-10.00)
--- NOTE | 2024-08-25 18:45 | ED ---
General Adult HPI - General Chief complaint: Syncope Stated complaint: Chest pain Time Seen by Provider: 08/25/24 17:59 Source: patient Mode of arrival: wheelchair Limitations: no limitations - History of Present Illness Initial comments: Patient is a 54-year-old female, past medical history of fibromyalgia presenting today for muscle spasms. History is limited as patient is hyperventilating throughout conversation. She states that she was recently diagnosed with fibromyalgia and started on Cymbalta at the beginning of July. She states that her muscle spasms in her legs have worsened since then. This morning patient had muscle spasms in along the front of her thighs. When her to pick her up at work she was on the ground due to persistent muscle spasms. Patient states she feels like there is burning on the anterior thighs and spasms at the top of her feet. She also notes she felt like a spasm behind her eye and in her arms. Endorses mild centralized chest pressure as well. Denies shortness of breath. Denies recent fevers or chills. Took a 0.25 mg Xanax at 430 without improvement of symptoms. Patient has no history ACS. She states her father had a history of strokes. - Related Data Home Medications Medication Instructions Recorded Confirmed RX: Gabapentin 600 mg PO TID 10/10/22 10/19/22 RX: Gabapentin [Neurontin] 100 mg PO TID 10/10/22 10/19/22 RX: traMADol HCL [Ultram] 50 mg PO DIRECTED PRN 10/16/22 10/19/22 Previous Rx's Medication Instructions Recorded RX: Pantoprazole [Protonix] 40 mg PO DAILY #14 tab 10/10/22 RX: Sucralfate [Carafate] 1 gm PO BID #30 tablet 10/10/22 Allergies Allergy/AdvReac Type Severity Reaction Status Date / Time acetaminophen Allergy Excedrin Verified 10/19/22 07:05 [From Excedrin Migraine] makes her jittery aspirin Allergy Excedrin Verified 10/19/22 07:05 [From Excedrin Migraine] makes her jittery Review of Systems ROS Statement: Those systems with pertinent positive or pertinent negative responses have been documented in the HPI. ROS Other: All systems not noted in ROS Statement are negative. Past Medical History Past Medical History: Asthma, GERD/Reflux Additional Past Medical History / Comment(s): chiari malformation with surgery 2019., mild asthma (no rx), trigeminal neuralgia., egd & colonoscopy 10/10/22 and states bleeding ulcers, gastritis and colon polyps., gall bladder pain, chiropra ctor for occasional back pain. History of Any Multi-Drug Resistant Organisms: None Reported Past Surgical History: No Surgical Hx Reported Additional Past Surgical History / Comment(s): COLONOSCOPY, EGD, chiari malformation surgery (dec 2019) Past Anesthesia/Blood Transfusion Reactions: No Reported Reaction, Motion Sickness Past Psychological History: Anxiety, Depression Smoking Status: Never smoker Past Alcohol Use History: Rare Past Drug Use History: None Reported - Past Family History Mother Family Medical History: Cancer Additional Family Medical History / Comment(s): breast cancer Father Family Medical History: Cancer Additional Family Medical History / Comment(s): colon and stomach cancer Daughter(s) Family Medical History: Cancer Additional Family Medical History / Comment(s): neuroblastoma General Exam - General Exam Comments Initial Comments: PE: CONSTITUTIONAL: Hyperventilating, tearful, overall well-appearing nontoxic SKIN: Warm, dry, no jaundice, hives or petechiae EYES: Pupils are equally round, extraocular movements intact without nystagmus, clear conjunctiva, non-icteric sclera HENT: Normocephalic, atraumatic, moist mucus membranes, oropharynx clear without exudates NECK: , Full range of motion, normal appearance PULMONARY: Clear to auscultation without wheezes, rhonchi, or rales, normal excursion, no accessory muscle use and no stridor CARDIOVASCULAR: Regular rate, rhythm, normal S1 and S2. No appreciated murmurs, rubs or gallops. Strong radial pulses with intact distal perfusion. No lower extremity edema GASTROINTESTINAL: Soft, active bowel sounds throughout, non-tender, non- distended, no palpable masses, no rebound or guarding. No hepatosplenomegaly MUSCULOSKELETAL: Extremities have no gross deformity, no edema, redness, or swelling. No calf swelling or TTP NEUROLOGIC:_a/o x 3, GCS 15,clear speech, no focal neurologic deficits, Moves all extremities x 4 without motor or sensory deficit PSYCHIATRIC:_anxious and tearful mood and affect, thought process is tangential, speech is rapid and pressured Limitations: no limitations Course Vital Signs 08/25/24 08/25/24 08/25/24 17:53 20:25 22:20 Temperature 98.2 F Pulse Rate 89 66 71 Respiratory 16 17 18 Rate Blood Pressure 167/72 157/89 134/83 O2 Sat by Pulse 100 98 97 Oximetry EKG Findings - EKG Comments: EKG Findings:: Sinus rhythm, rate 77 bpm with QTc QTc 426/458 ms, normal axis, no ST elevations or depressions, no ischemic changes Medical Decision Making - Medical Decision Making Was pt. sent in by a medical professional or institution (, [facility], ROPE TWISTING MACHINE OPERATOR, urgent care, hospital, or retirement...) When possible be specific @ -No Did you speak to anyone other than the patient for history (EMS, parent, family, police, friend...)? What history was obtained from this source @ -No Did you review nursing and triage notes (agree or disagree)? Why? @ -I reviewed nursing and triage notes Were old charts reviewed (outside hosp., previous admission, EMS record, old EKG, old radiological studies, urgent care reports/EKG's, retirement records)? Report findings @ -Medical records reviewed Differential Diagnosis (chest pain, altered mental status, abdominal pain women, abdominal pain men, vaginal bleeding, weakness, fever, dyspnea, syncope, headache, dizziness, GI bleed, back pain, seizure, CVA, palpatations, mental health, musculoskeletal)? @Differential Chest Pain: Stable Angina, Unstable Angina, STEMI, NSTEMI Aortic Dissection, pericarditis, pleurisy, chostochondirits, Pneumothorax, Musculoskeletal, Esophageal Spasm GERD, Cholecystitis, Pancreatitis, Zoster, this is not meant to be an all- inclusive list. EKG interpreted by me (3pts min.). @ -As above X-rays interpreted by me (1pt min.). Personally reviewed chest x-ray see no evidence of cardiomegaly, consolidations or pneumothorax agrees radiologist interpretation CT interpreted by me (1pt min.). @ -None done U/S interpreted by me (1pt. min.). @ -None done What testing was considered but not performed or refused? (CT, X-rays, U/S, labs)? Why? @ -None What meds were considered but not given or refused? Why? @ -None Did you discuss the management of the patient with other professionals (professionals i.e. , ELIZABETH, ROPE TWISTING MACHINE OPERATOR, lab, RT, psych nurse, transition social worker, travel attendants, teacher, workplace rehabilitation officer, lead case manager)? Give summary @ -No Was smoking cessation discussed for >3mins.? @ -No Was critical care preformed (if so, how long)? @ -No Were there social determinants of health that impacted care today? How? (Homelessness, low income, unemployed, alcoholism, drug addiction, transportation, low edu. Level, literacy, decrease access to med. care, prison, rehab)? @ -No Was there de-escalation of care discussed even if they declined (Discuss DNR or withdrawal of care, Hospice)? @ -No What co-morbidities impacted this encounter? (DM, HTN, Smoking, COPD, CAD, Cancer, CVA, ARF, Chemo, Hep., AIDS, mental health diagnosis, sleep apnea, morbid obesity)? @Fibromyalgia, Arnold-Chiari malformation Was patient admitted / discharged? Hospital course, mention meds given and route, prescriptions, significant lab abnormalities, going to OR and other pertinent info. @ -[id number]-old female presenting today for muscle spasms and chest pain. On my assessment patient is tearful, hyperventilating, difficult to obtain history from secondary to this. She has no focal neurologic deficits. Accompanied by . Suspect symptoms are secondary to panic attack however will obtain chest pain evaluation. Patient will be given aspirin due to her justin st pain, morphine for chest pain, Valium for anxiety and muscle spasms. Labs and imaging reviewed. Grossly within normal limits. Abnormal values not concerning for acute pathology related to presenting complaint, With exception of mild hypokalemia potassium 3.4. Replace will be ordered. On reassessment patient appears much more comfortable, speech is no longer rapid and pressured. Endorses improvement of symptoms, including muscle spasms and chest pain. States chest pain is still present though improved from prior. Will trial SL nitro and additional morphine. EKG shows no ischemic changes. Troponin is nonelevated. I have a lower suspicion for cardiac etiology of pain however due to its persistence and family hx of TIAs, plan for admission for observation. Pt agreeable with plan of care. Case discussed with Dr. Nathan, kindly accepts pt for admission. Drug Therapy requiring intensive monitoring for toxicity (Heparin, Nitro, Insulin, Cardizem)? @ -No Were any procedures done? @ -No Diagnosis/symptom? chest pain, muscle spasms Acute, or Chronic, or Acute on Chronic? acute Uncomplicated (without systemic symptoms) or Complicated (systemic symptoms)? @ -complicated Side effects of treatment? @ -No Exacerbation, Progression, or Severe Exacerbation? @ -No Potentially, if 2/2 cardiac etiology - Lab Data Result diagrams: 08/25/24 18:36 08/25/24 19:20 Lab Results 08/25/24 08/25/24 08/25/24 Range/Units 18:36 18:40 18:40 WBC 7.41 (4.50-10.00) 10*3/uL RBC 4.35 (4.10-5.20) 10*6/uL Hgb 13.0 (12.0-15.0) g/dL Hct 37.9 (37.2-46.3) % MCV 87.1 (80.0-97.0) fL MCH 29.9 (27.0-32.0) pg MCHC 34.3 (32.0-37.0) g/dL Plt Count 278 (140-440) 10*3/uL MPV 9.7 (9.5-12.2) fL Immature Gran % (Auto) 0.3 % Neutrophils % 48.7 % Lymphocytes % 40.9 % Monocytes % 8.1 % Eosinophils % 1.2 % Basophils % 0.8 % Immature Gran # 0.02 (0.00-0.04) 10*3/uL Neutrophils # 3.61 (1.80-7.70) 10*3/uL Lymphocytes # 3.03 (0.90-5.00) 10*3/uL Monocytes # 0.60 (0.20-1.00) 10*3/uL Eosinophils # 0.09 (0.04-0.35) 10*3/uL Basophils # 0.06 (0.00-0.10) 10*3/uL Manual Slide Review Performed Large Platelets Present RBC Morphology Normal PT 12.1 (10.0-12.5) sec INR 1.1 (<1.2) APTT 22.2 (22.0-30.0) sec Sodium (137-145) mmol/L Potassium (3.5-5.1) mmol/L Chloride (98-107) mmol/L Carbon Dioxide (22-30) mmol/L Anion Gap mmol/L BUN (7-17) mg/dL Creatinine (0.52-1.04) mg/dL Est GFR (CKD-EPI)AfAm (>60 ml/min/1.73 sqM) Est GFR (CKD-EPI)NonAf (>60 ml/min/1.73 sqM) Glucose (74-99) mg/dL Calcium (8.4-10.2) mg/dL Magnesium (1.6-2.3) mg/dL Total Bilirubin (0.2-1.3) mg/dL AST (14-36) U/L ALT (4-34) U/L Alkaline Phosphatase (38-126) U/L Troponin I 0.018 (0.000-0.034) ng/mL NT-Pro-B Natriuret Pep pg/mL Total Protein (6.3-8.2) g/dL Albumin (3.5-5.0) g/dL Lipase (23-300) U/L 08/25/24 Range/Units 19:20 WBC (4.50-10.00) 10*3/uL RBC (4.10-5.20) 10*6/uL Hgb (12.0-15.0) g/dL Hct (37.2-46.3) % MCV (80.0-97.0) fL MCH (27.0-32.0) pg MCHC (32.0-37.0) g/dL Plt Count (140-440) 10*3/uL MPV (9.5-12.2) fL Immature Gran % (Auto) % Neutrophils % % Lymphocytes % % Monocytes % % Eosinophils % % Basophils % % Immature Gran # (0.00-0.04) 10*3/uL Neutrophils # (1.80-7.70) 10*3/uL Lymphocytes # (0.90-5.00) 10*3/uL Monocytes # (0.20-1.00) 10*3/uL Eosinophils # (0.04-0.35) 10*3/uL Basophils # (0.00-0.10) 10*3/uL Manual Slide Review Large Platelets RBC Morphology PT (10.0-12.5) sec INR (<1.2) APTT (22.0-30.0) sec Sodium 139 (137-145) mmol/L Potassium 3.4 L (3.5-5.1) mmol/L Chloride 101 (98-107) mmol/L Carbon Dioxide 29 (22-30) mmol/L Anion Gap 9 mmol/L BUN 9 (7-17) mg/dL Creatinine 0.65 (0.52-1.04) mg/dL Est GFR (CKD-EPI)AfAm >90 (>60 ml/min/1.73 sqM) Est GFR (CKD-EPI)NonAf >90 (>60 ml/min/1.73 sqM) Glucose 101 H (74-99) mg/dL Calcium 8.9 (8.4-10.2) mg/dL Magnesium 1.8 (1.6-2.3) mg/dL Total Bilirubin 0.5 (0.2-1.3) mg/dL AST 27 (14-36) U/L ALT 21 (4-34) U/L Alkaline Phosphatase 141 H (38-126) U/L Troponin I (0.000-0.034) ng/mL NT-Pro-B Natriuret Pep 122 pg/mL Total Protein 6.9 (6.3-8.2) g/dL Albumin 3.8 (3.5-5.0) g/dL Lipase 126 (23-300) U/L Disposition Clinical Impression: Chest pain, Muscle spasm Disposition: ADMITTED IP TO THIS HOSP Condition: Stable
[2024-08-25 18:56] LABS: INR 1.1 (<1.2); Partial Thromboplastin Time 22.2 sec (22.0-30.0); Prothrombin Time 12.1 sec (10.0-12.5)
[2024-08-25] MEDS: SODIUM CHLORIDE 0.9% 1,000 ML IV STA (19:02)
[2024-08-25] MEDS: ASPIRIN 81 MG PO STA (19:03)
[2024-08-25] MEDS: GABAPENTIN 400 MG CAP PO STA (19:05)
[2024-08-25] MEDS: ONDANSETRON 4 MG/2 ML VIAL IVP STA (19:05)
[2024-08-25] MEDS: MORPHINE SULFATE 2 MG/ML SYRINGE IVP STA ×2 (19:06→20:36)
[2024-08-25 19:14] LABS: Large Platelets Present; RBC Morphology Normal
--- NOTE | 2024-08-25 19:39 | XR ---
EXAMINATION TYPE: XR chest 2V DATE OF EXAM: 08/25/2024 6:58 PM COMPARISON: 12/18/2019 CLINICAL INDICATION: Female, 54 years old with history of Chest Pain, TECHNIQUE: XR chest 2V view(s) obtained. FINDINGS: The heart size is normal. The pulmonary vasculature is normal. The lungs are clear. IMPRESSION: 1. No acute pulmonary process. [facility], Workstation: [facility], 08/25/2024 7:36 PM
[2024-08-25 20:09] LABS: ALT 21 U/L (4-34); AST 27 U/L (14-36); African American GFR (CKD) >90 (>60 ml/min/1.73 sqM); Albumin 3.8 g/dL (3.5-5.0); Alkaline Phosphatase 141 U/L (38-126); Anion Gap 9 mmol/L; Blood Urea Nitrogen 9 mg/dL (7-17); Calcium 8.9 mg/dL (8.4-10.2); Carbon Dioxide 29 mmol/L (22-30); Chloride 101 mmol/L (98-107); Glucose 101 mg/dL (74-99); Lipase 126 U/L (23-300); Magnesium 1.8 mg/dL (1.6-2.3); Non-African American GFR(CKD) >90 (>60 ml/min/1.73 sqM); Potassium 3.4 mmol/L (3.5-5.1); Sodium 139 mmol/L (137-145); Total Bilirubin 0.5 mg/dL (0.2-1.3); Total Protein 6.9 g/dL (6.3-8.2)
[2024-08-25 20:16] LABS: NT-Pro-B-Type Natriuretic Pept 122 pg/mL
[2024-08-25] MEDS: NITROGLYCERIN SL TABS 0.4 MG TAB SUBLINGUAL STA (20:36)
[2024-08-25] MEDS ORDERED: MAG HYDROX/AL HYDROX/SIMETH 30 ML CUP PO PRN (21:03)
[2024-08-25] MEDS ORDERED: NALOXONE 0.4 MG/ML 1 ML VIAL IV PRN (21:03)
[2024-08-25] MEDS ORDERED: LORazepam 0.5 MG TAB PO PRN (21:03)
[2024-08-25] MEDS ORDERED: ONDANSETRON 4 MG/2 ML VIAL IVP PRN (21:03)
[2024-08-25] MEDS ORDERED: MORPHINE SULFATE 4 MG/ML SYRINGE IV PRN (21:03)
[2024-08-25] MEDS ORDERED: ACETAMINOPHEN TAB 325 MG TAB PO PRN (21:03)
[2024-08-25] MEDS ORDERED: CALCIUM CARBONATE 500 MG CHEWABLE PO PRN (21:03)
[2024-08-25] MEDS: POTASSIUM CHLORIDE ER 20 MEQ TAB.ER PO STA (23:12)
[2024-08-26] MEDS: GABAPENTIN 300 MG CAP PO SCH (06:48)
[2024-08-26] MEDS: GABAPENTIN 100 MG CAP PO SCH (06:48)
--- NOTE | 2024-08-26 08:24 | P.HPIM ---
History of Present Illness H&P Date: 08/26/24 Chief Complaint: Chest pain with diffuse myalgia This is history and physical on a 54-year-old white female who was recently being started getting a workup for fibromyalgia. She recently saw Dr. Blanc and had testing done. The patient yesterday had significant chest pressure. She describes diffuse lower extremity hip calf and ocular pain. No significant family history no diaphoresis stated but she states some pain to the bicep area. But she describes it as a knot. The chest pain was initially fleeting but continued. No nausea no vision loss. No numbness stated. Review of Systems Constitutional: Denies chills, Denies fever Eyes: denies blurred vision, denies pain Ears, nose, mouth and throat: Denies headache, Denies sore throat Cardiovascular: Denies chest pain, Denies shortness of breath Past Medical History Past Medical History: Asthma, Fibromyalgia, GERD/Reflux Additional Past Medical History / Comment(s): chiari malformation with surgery 2019., mild asthma (no rx), trigeminal neuralgia., egd & colonoscopy 10/10/22 and states bleeding ulcers, gastritis and colon polyps., gall bladder pain, chiropractor for occasional back pain, Ehlersdanlous connective tissue disorder History of Any Multi-Drug Resistant Organisms: None Reported Past Surgical History: Cholecystectomy Additional Past Surgical History / Comment(s): COLONOSCOPY, EGD, chiari malformation surgery (dec 2019) Past Anesthesia/Blood Transfusion Reactions: Motion Sickness Additional Past Anesthesia/Blood Transfusion Reaction / Comment(s): takes longer to come out of anesthesia Smoking Status: Never smoker - Past Family History Mother Family Medical History: Cancer, Congestive Heart Failure (CHF), Diabetes Mellitus, Hypertension, Renal Disease Additional Family Medical History / Comment(s): breast cancer, temporary dialaysis Father Family Medical History: AICD/Pacemaker, Cancer, Chest Pain / Angina, CVA/TIA, Deep Vein Thrombosis (DVT), Myocardial Infarction ([place]), Syncope Additional Family Medical History / Comment(s): colon and stomach cancer Daughter(s) Family Medical History: Cancer Additional Family Medical History / Comment(s): neuroblastoma Medications and Allergies Home Medications Medication Instructions Recorded Confirmed Type Gabapentin 600 mg PO TID 10/10/22 10/19/22 History Gabapentin [Neurontin] 100 mg PO TID 10/10/22 10/19/22 History Pantoprazole [Protonix] 40 mg PO DAILY #14 tab 10/10/22 10/19/22 Rx Sucralfate [Carafate] 1 gm PO BID #30 tablet 10/10/22 10/19/22 Rx traMADol HCL [Ultram] 50 mg PO DIRECTED PRN 10/16/22 10/19/22 History Allergies Allergy/AdvReac Type Severity Reaction Status Date / Time acetaminophen Allergy Excedrin Verified 10/19/22 07:05 [From Excedrin Migraine] makes her jittery aspirin Allergy Excedrin Verified 10/19/22 07:05 [From Excedrin Migraine] makes her jittery Physical Exam Vitals: Vital Signs Temp Pulse Pulse Resp BP BP Pulse Ox 08/26/24 02:00 97.8 F 70 17 137/74 99 08/25/24 22:20 71 18 134/83 97 08/25/24 20:25 66 17 157/89 98 08/25/24 17:53 98.2 F 89 16 167/72 100 Intake and Output 08/25/24 08/26/24 08/26/24 22:59 06:59 14:59 Other: Voiding Method Toilet # Voids 1 Weight 87.09 kg 87.09 kg - Constitutional General appearance: cooperative, no acute distress - EENT Eyes: EOMI - Neck Neck: no lymphadenopathy - Respiratory Respiratory: bilateral: diminished - Cardiovascular Rhythm: regular Heart sounds: normal: S1, S2 Abnormal Heart Sounds: no S3 Gallop - Gastrointestinal General gastrointestinal: soft, no tenderness - Musculoskeletal Musculoskeletal: no generalized weakness - Psychiatric Psychiatric: A&O x's 3, appropriate affect Results CBC & Chem 7: 08/25/24 18:36 08/25/24 19:20 Labs: Abnormal Lab Results - Last 24 Hours (Table) 08/25/24 Range/Units 19:20 Potassium 3.4 L (3.5-5.1) mmol/L Glucose 101 H (74-99) mg/dL Alkaline Phosphatase 141 H (38-126) U/L Thrombosis Risk Factor Assmnt - Choose All That Apply Any of the Below Risk Factors Present?: Yes Each Factor Represents 1 point: Age 41-60 years, Obesity (BMI >25) Other Risk Factors: Yes Each Risk Factor Represents 3 Points: Family history of DVT/PE Thrombosis Risk Factor Assessment Total Risk Factor Score: 5 Thrombosis Risk Factor Assessment Level: High Risk Assessment and Plan (1) Fibromyalgia Current Visit: Yes Status: Acute Code(s): M79.7 - FIBROMYALGIA SNOMED Code(s): 086901621 (2) Chest pain Current Visit: Yes Status: Acute Code(s): R07.9 - CHEST PAIN, UNSPECIFIED SNOMED Code(s): 30229795 Plan: Will check echocardiogram. Consult cardiology. No cardiac enzymatic elevation at this point. I do suspect element of fibromyalgia type pain. Reconcile home medications See orders otherwise. She is a full code. Time with Patient: Greater than 30
[2024-08-26] MEDS ORDERED: GABAPENTIN 100 MG CAP PO SCH (09:00)
[2024-08-26] MEDS ORDERED: GABAPENTIN 300 MG CAP PO SCH (09:00)
[2024-08-26] MEDS: SUCRALFATE 1 GM TAB PO SCH (10:07)
[2024-08-26] MEDS: METOPROLOL SUCCINATE (ER) 25 MG TAB.ER.24H PO SCH (10:07)
[2024-08-26] MEDS: FAMOTIDINE 20 MG TAB PO SCH (10:07)
[2024-08-26] MEDS: ENOXAPARIN 40 MG/0.4 ML SYRINGE SQ SCH (10:07)
--- NOTE | 2024-08-26 10:08 | P.CRDCN ---
History of Present Illness History of present illness: HISTORY OF PRESENT ILLNESS: This is a 54-year-old female with a past medical history significant for Chiari malformation with surgery in 2020, connective tissue disorder, trigeminal neura lgia, and fibromyalgia. Patient does not follow with a management intern. We have been asked to see the patient in consultation for chest pain. Patient examined at the bedside. Patient states that she was recently diagnosed with fibromyalgia by Dr. Blanc. She states that she was started on Cymbalta re cently. She states yesterday she was having tightening in her legs and arm that would happen every 15 to 20 minutes. She also reports ports feeling a tightening sensation in her feet and behind her eye. She had 1 episode of chest tightening. She states that she got really hot and then started to feel her heart race due to being nervous. She states that she has been having a difficult time walking recently due to all of her symptoms however the Cymbalta has been helping her. She states that she was at work yesterday at [employer] and this occurred so she decided to come to the emergency room for further evaluation. She denies any chest pain or pressure at the time of examination. The patient did have 1 short run of atrial tachycardia overnight. DIAGNOSTICS: - EKG reveals sinus mechanism with no signs of acute ischemia. - Chest xray negative for acute process. - Laboratory data: WBC 7.41. Hemoglobin 13.0. Platelet count 278. Sodium 139. Potassium 3.4. BUN 9. Creatinine 0.65. Troponin negative x 3. - Current home cardiac medications include none. - No previous echocardiogram, stress test, or cardiac catheterization available in EMR for review REVIEW OF SYSTEMS: At the time of my exam: CONSTITUTIONAL: Denies fever or chills. HEENT: Denies blurred vision, vision changes, or eye pain. Denies hemoptysis CARDIOVASCULAR: Denies chest pain. Denies orthopnea. Denies PND. Denies palpitations RESPIRATORY: Denies shortness of breath. GASTROINTESTINAL: Denies abdominal pain. Denies nausea or vomiting. HEMATOLOGIC: Denies bleeding disorders. GENITOURINARY: Denies any blood in urine. SKIN: Denies pruitis. Denies rash. PHYSICAL EXAM: VITAL SIGNS: Reviewed. GENERAL: Well-developed in no acute distress. HEENT: Head is normocephalic. Pupils are equal, round. Sclerae anicteric. Mucous membranes of the mouth are moist. Neck supple. No JVD or thyromegaly LUNGS: Respirations even and unlabored. Lungs essentially clear to auscultation bilaterally. HEART: Regular rate and rhythm. S1 and S2 heard. ABDOMEN: Soft. Nondistended. Nontender. EXTREMITIES: Normal range of motion. No clubbing or cyanosis. Peripheral pulses intact. No lower extremity edema NEUROLOGIC: Awake and alert. Oriented x 3. ASSESSMENT: Atypical chest pain, troponin negative x 3 Short run of atrial tachycardia Fibromyalgia, recently started on Cymbalta History of Chiari malformation with surgery in 2019 History of connective tissue disorder History of trigeminal neuralgia Obesity: BMI 34.0 PLAN: An acute coronary event has been ruled out Obtain 2D echo to assess cardiac structure and function Check TSH Add metoprolol succinate 25 mg daily Continue telemetry monitoring Further recommendations pending patient course Nurse practitioner note has been reviewed by physician. Signing provider agrees with the documented findings, assessment, and plan of care documented by [employer] as a scribe. Past Medical History Past Medical History: Asthma, Fibromyalgia, GERD/Reflux Additional Past Medical History / Comment(s): chiari malformation with surgery 2019., mild asthma (no rx), trigeminal neuralgia., egd & colonoscopy 10/10/22 and states bleeding ulcers, gastritis and colon polyps., gall bladder pain, chiropractor for occasional back pain, Ehlersdanlous connective tissue disorder History of Any Multi-Drug Resistant Organisms: None Reported Past Surgical History: Cholecystectomy Additional Past Surgical History / Comment(s): COLONOSCOPY, EGD, chiari malformation surgery (dec 2019) Past Anesthesia/Blood Transfusion Reactions: Motion Sickness Additional Past Anesthesia/Blood Transfusion Reaction / Comment(s): takes longer to come out of anesthesia Smoking Status: Never smoker - Past Family History Mother Family Medical History: Cancer, Congestive Heart Failure (CHF), Diabetes Mellitus, Hypertension, Renal Disease Additional Family Medical History / Comment(s): breast cancer, temporary dialaysis Father Family Medical History: AICD/Pacemaker, Cancer, Chest Pain / Angina, CVA/TIA, Deep Vein Thrombosis (DVT), Myocardial Infarction (MS), Syncope Additional Family Medical History / Comment(s): colon and stomach cancer Daughter(s) Family Medical History: Cancer Additional Family Medical History / Comment(s): neuroblastoma Medications and Allergies Home Medications Medication Instructions Recorded Confirmed Type Gabapentin 600 mg PO TID 10/10/22 08/26/24 History Gabapentin [Neurontin] 100 mg PO TID 10/10/22 08/26/24 History ALPRAZolam [Xanax] 0.25 mg PO DAILY PRN 08/26/24 08/26/24 History Acetaminophen-Codeine 300-30mg 1 tab PO Q6H PRN 08/26/24 08/26/24 History [Tylenol w/codeine #3] Ascorbic Acid/Multivit-Min 1,000 mg PO DAILY 08/26/24 08/26/24 History [Emergen-C 1,000 mg Packet] Cholecalciferol (Vitamin D3) 50 mcg PO DAILY 08/26/24 08/26/24 History [Vitamin D3 (50 Mcg = 2000 Iu)] DULoxetine HCL [Cymbalta] 30 mg PO BID 08/26/24 08/26/24 History Pyridoxine HCl (Vitamin B6) 100 mg PO DAILY 08/26/24 08/26/24 History [Vitamin B-6] Zinc Gluconate [Zinc] 50 mg PO DAILY 08/26/24 08/26/24 History methocarbamoL [Robaxin-750] 750 mg PO Q6H PRN 08/26/24 08/26/24 History Allergies Allergy/AdvReac Type Severity Reaction Status Date / Time acetaminophen Allergy Excedrin Verified 08/26/24 09:03 [From Excedrin Migraine] makes her jittery aspirin Allergy Excedrin Verified 08/26/24 09:03 [From Excedrin Migraine] makes her jittery Physical Exam Vitals: Vital Signs Temp Pulse Pulse Pulse Resp BP BP 08/26/24 07:30 97.7 F 72 72 16 133/75 08/26/24 02:00 97.8 F 70 17 137/74 08/25/24 22:20 71 18 134/83 08/25/24 20:25 66 17 157/89 08/25/24 17:53 98.2 F 89 16 167/72 Pulse Ox 08/26/24 07:30 97 08/26/24 02:00 99 08/25/24 22:20 97 08/25/24 20:25 98 08/25/24 17:53 100 Intake and Output 08/25/24 08/26/24 08/26/24 22:59 06:59 14:59 Other: Voiding Method Toilet Toilet # Voids 1 Weight 87.09 kg 87.09 kg Results 08/25/24 18:36 08/25/24 19:20 Cardiac Enzymes 08/25/24 08/25/24 08/26/24 Range/Units 18:40 19:20 00:06 AST 27 (14-36) U/L Troponin I 0.018 <0.012 (0.000-0.034) ng/mL 08/26/24 Range/Units 03:03 AST (14-36) U/L Troponin I <0.012 (0.000-0.034) ng/mL Coagulation 08/25/24 Range/Units 18:40 PT 12.1 (10.0-12.5) sec APTT 22.2 (22.0-30.0) sec CBC 08/25/24 Range/Units 18:36 WBC 7.41 (4.50-10.00) 10*3/uL RBC 4.35 (4.10-5.20) 10*6/uL Hgb 13.0 (12.0-15.0) g/dL Hct 37.9 (37.2-46.3) % Plt Count 278 (140-440) 10*3/uL Comprehensive Metabolic Panel 08/25/24 Range/Units 19:20 Sodium 139 (137-145) mmol/L Potassium 3.4 L (3.5-5.1) mmol/L Chloride 101 (98-107) mmol/L Carbon Dioxide 29 (22-30) mmol/L BUN 9 (7-17) mg/dL Creatinine 0.65 (0.52-1.04) mg/dL Glucose 101 H (74-99) mg/dL Calcium 8.9 (8.4-10.2) mg/dL AST 27 (14-36) U/L ALT 21 (4-34) U/L Alkaline Phosphatase 141 H (38-126) U/L Total Protein 6.9 (6.3-8.2) g/dL Albumin 3.8 (3.5-5.0) g/dL Current Medications Generic Name Dose Route Start Last Admin Trade Name Freq PRN Reason Stop Dose Admin Acetaminophen 650 mg 08/25/24 21:03 Acetaminophen Tab 325 Mg Tab PO Q6HR PRN Mild Pain or Fever > 100.5 Al Hydroxide/Mg Hydroxide 15 ml 08/25/24 21:03 Mag Hydrox/Al Hydrox/Simeth 30 Ml Cup PO Q6HR PRN Indigestion Calcium Carbonate/Glycine 1,000 mg 08/25/24 21:03 Calcium Carbonate 500 Mg Chewable PO Q4HR PRN Dyspepsia Enoxaparin Sodium 40 mg 08/26/24 09:00 Enoxaparin 40 Mg/0.4 Ml Syringe SQ DAILY PRUDENCIO Famotidine 20 mg 08/26/24 09:00 Famotidine 20 Mg Tab PO BID PRUDENCIO Gabapentin 600 mg 08/26/24 07:00 08/26/24 06:48 Gabapentin 300 Mg Cap PO 600 mg 0600,1400,2200 PRUDENCIO Administration Gabapentin 100 mg 08/26/24 07:00 08/26/24 06:48 Gabapentin 100 Mg Cap PO 100 mg 0600,1400,2200 PRUDENCIO Administration Lorazepam 0.5 mg 08/25/24 21:03 Lorazepam 0.5 Mg Tab PO Q6HR PRN Anxiety Metoprolol Succinate 25 mg 08/26/24 09:30 Metoprolol Succinate (Er) 25 Mg Tab.Er.24h PO DAILY PRUDENCIO Morphine Sulfate 4 mg 08/25/24 21:03 Morphine Sulfate 4 Mg/Ml Syringe IV Q4HR PRN Severe Pain (Scale 7 to 10) Naloxone HCl 0.2 mg 08/25/24 21:03 Naloxone 0.4 Mg/Ml 1 Ml Vial IV Q2M PRN Opioid Reversal Ondansetron HCl 4 mg 08/25/24 21:03 Ondansetron 4 Mg/2 Ml Vial IVP Q8HR PRN Nausea And Vomiting Pantoprazole Sodium 40 mg 08/27/24 07:30 Pantoprazole 40 Mg Tablet PO AC-BRKFST PRUDENCIO Sucralfate 1 gm 08/26/24 09:00 Sucralfate 1 Gm Tab PO AC-BID PRUDENCIO Intake and Output 08/25/24 08/26/24 08/26/24 22:59 06:59 14:59 Other: Voiding Method Toilet Toilet # Voids 1 Weight 87.09 kg 87.09 kg 08/25/24 18:36 08/25/24 19:20
[2024-08-26 18:57] LABS: Chol/HDL Ratio 2.82 Ratio; LDL Cholesterol,Calculated 92.4 mg/dL (0.0-131.0); VLDL Calculation 10.88 mg/dL (5.00-40.00)
[2024-08-26 20:04] VITALS: RESP 17
[2024-08-26] MEDS: DULoxetine HCL 30 MG CAPSULE.DR PO SCH (21:09)
[2024-08-27] MEDS: PANTOPRAZOLE 40 MG TABLET PO SCH (06:43)
--- NOTE | 2024-08-27 10:01 | CA ---
Transthoracic Echo Report Name: Laya Iqbal Age: 54 Gender: F : 1970 Exam Date: 08/26/2024 15:19 Exam Location: [facility] Ht (in): 63 Wt (lb): 192 Ordering Physician: Philip Nathan MD Attending/Referring Phys: Panel Beater Raquel Duke RDCS Procedure CPT: Indications: Chest Pain Cardiac Hx: Technical Quality: Good Contrast 1: Total Dose (mL): Contrast 2: Total Dose (mL): MEASUREMENTS (Male / Female) Normal Values 2D ECHO LV Diastolic Diameter PLAX 4.6 cm 4.2 - 5.9 / 3.9 - 5.3 cm LV Systolic Diameter PLAX 3.1 cm IVS Diastolic Thickness 1.0 cm 0.6 - 1.0 / 0.6 - 0.9 cm LVPW Diastolic Thickness 0.7 cm 0.6 - 1.0 / 0.6 - 0.9 cm LV Relative Wall Thickness 0.4 LVOT Diameter 2.0 cm LV Diastolic Volume MOD BP 108.6 cm??? 67 - 155 / 56 - 104 cm??? LV Systolic Volume MOD BP 42.2 cm??? 22 - 58 / 19 - 49 cm??? LV Ejection Fraction MOD BP 61.1 % >= 55 % LV Cardiac Index MOD BP 1986.8 cm???/min???m??? LV Diastolic Volume MOD 4C 110.2 cm??? LV Systolic Volume MOD 4C 46.9 cm??? LV Ejection Fraction MOD 4C 57.4 % LV Cardiac Index MOD 4C 1892.2 cm???/min???m??? LV Diastolic Length 4C 8.6 cm LV Systolic Length 4C 7.1 cm LV Diastolic Volume MOD 2C 100.0 cm??? LV Systolic Volume MOD 2C 35.9 cm??? LV Ejection Fraction MOD 2C 64.1 % LV Cardiac Index MOD 2C 1918.8 cm???/min???m??? LV Diastolic Length 2C 8.0 cm LV Systolic Length 2C 6.7 cm LA Volume 39.2 cm??? 18 - 58 / 22 - 52 cm??? LA Volume Index 19.5 cm???/m??? 16 - 28 cm???/m??? DOPPLER AV Peak Velocity 166.8 cm/s AV Peak Gradient 11.1 mmHg AV Mean Velocity 116.4 cm/s AV Mean Gradient 6.0 mmHg AV Velocity Time Integral 36.0 cm LVOT Peak Velocity 113.5 cm/s LVOT Peak Gradient 5.2 mmHg LVOT Velocity Time Integral 24.5 cm LVOT Stroke Volume 78.7 cm??? LVOT Stroke Volume Index 41.4 ml/m??? LVOT Cardiac Index 2354.4 cm???/min???m??? AV Area Cont Eq vti 2.2 cm??? AV Area Cont Eq pk 2.2 cm??? MV Area PHT 4.5 cm??? Mitral E Point Velocity 105.8 cm/s Mitral A Point Velocity 64.6 cm/s Mitral E to A Ratio 1.6 MV Deceleration Time 170.3 ms TR Peak Velocity 269.9 cm/s TR Peak Gradient 29.1 mmHg Right Atrial Pressure 10.0 mmHg Pulmonary Artery Systolic Pressu 39.1 mmHg Right Ventricular Systolic Press 39.1 mmHg PV Peak Velocity 69.7 cm/s PV Peak Gradient 1.9 mmHg FINDINGS Left Ventricle Left ventricular ejection fraction is estimated at 55-60 %. Mildly increased left ventricular diastolic volume. Left ventricular wall thickness normal. No obvious regional wall motion abnormalities. Right Ventricle Normal right ventricular size and function. Mild pulmonary hypertension. Right Atrium Normal right atrial size. Left Atrium Normal left atrial size. Mitral Valve Structurally normal mitral valve. No evidence for mitral valve prolapse. No mitral stenosis. Trace mitral regurgitation. Aortic Valve Trileaflet aortic valve. No aortic valve stenosis or regurgitation. Tricuspid Valve Structurally normal tricuspid valve. No tricuspid stenosis. Mild tricuspid regurgitation. Pulmonic Valve Structurally normal pulmonic valve. No pulmonic stenosis. Mild pulmonic regurgitation. Pericardium No pericardial effusion. Aorta Aortic annulus normal. CONCLUSIONS Normal LV size and systolic function. No significant abnormality on the Doppler exam. No pericardial effusion. Mildly elevated PA pressures. Previewed by: Dr. Serene Cooper MD (Electronically Signed) Final Date: 27 Aug 2024 10:00
--- NOTE | 2024-08-27 10:21 | P.PN ---
Subjective HISTORY OF PRESENT ILLNESS: This is a 54-year-old female with a past medical history significant for Chiari malformation with surgery in 2019, connective tissue disorder, trigeminal neuralgia, and fibromyalgia. Patient does not follow with a major donor coordinator. We have been asked to see the patient in consultation for chest pain. Patient examined at the bedside. Patient states that she was recently diagnosed with fibromyalgia by Dr. Balnc. She states that she was started on Cymbalta recently. She states yesterday she was having tightening in her legs and arm that would happen every 15 to 20 minutes. She also reports ports feeling a tightening sensation in her feet and behind her eye. She had 1 episode of chest tightening. She states that she got really hot and then started to feel her heart race due to being nervous. She states that she has been having a difficult time walking recently due to all of her symptoms however the Cymbalta has been helping her. She states that she was at work yesterday at [employer] and this occurred so she decided to come to the emergency room for further evaluation. She denies any chest pain or pressure at the time of examination. The patient did have 1 short run of atrial tachycardia overnight. DIAGNOSTICS: - EKG reveals sinus mechanism with no signs of acute ischemia. - Chest xray negative for acute process. - Laboratory data: WBC 7.41. Hemoglobin 13.0. Platelet count 278. Sodium 139. Potassium 3.4. BUN 9. Creatinine 0.65. Troponin negative x 3. - Current home cardiac medications include none. - No previous echocardiogram, stress test, or cardiac catheterization available in EMR for review 08/27/2024 Patient examined this morning to bedside. Patient currently denies chest pain or pressure. She denies shortness of breath. No further episodes of atrial tachycardia. Echocardiogram completed revealing ejection fraction 55 to 60%, mild pulmonary hypertension, trace MR, mild TR PHYSICAL EXAM: VITAL SIGNS: Reviewed. GENERAL: Well-developed in no acute distress. HEENT: Head is normocephalic. Pupils are equal, round. Sclerae anicteric. Mucous membranes of the mouth are moist. Neck supple. No JVD or thyromegaly LUNGS: Respirations even and unlabored. Lungs essentially clear to auscultation bilaterally. HEART: Regular rate and rhythm. S1 and S2 heard. ABDOMEN: Soft. Nondistended. Nontender. EXTREMITIES: Normal range of motion. No clubbing or cyanosis. Peripheral pulses intact. No lower extremity edema NEUROLOGIC: Awake and alert. Oriented x 3. ASSESSMENT: Atypical chest pain, troponin negative x 3 Short run of atrial tachycardia Fibromyalgia, recently started on Cymbalta History of Chiari malformation with surgery in 2019 History of connective tissue disorder History of trigeminal neuralgia Obesity: BMI 34.0 PLAN: Continue metoprolol succinate 25 mg daily Prescription for outpatient stress echo given to the patient's nurse. Dr. Cooper would like the patient to have an outpatient stress test performed next week. Dr. Cooper instructed nursing to schedule this before the patient is discharged home Patient to hold dose of metoprolol succinate the morning of her stress test Stable for discharge home today from a cardiac standpoint Nurse practitioner note has been reviewed by physician. Signing provider agrees with the documented findings, assessment, and plan of care documented by [employer] as a scribe. Objective - Vital Signs Vital signs: Vital Signs Temp 97.8 F 08/27/24 08:05 Pulse 56 L 08/27/24 08:05 Resp 17 08/27/24 02:00 BP 140/80 08/27/24 08:05 Pulse Ox 99 08/27/24 08:05 FiO2 Intake & Output 08/26/24 08/27/24 08/27/24 18:59 06:59 18:59 Intake Total 1010 Balance 1010 Intake: Oral 1010 Other: Voiding Method Toilet Toilet # Voids 2 0 - Labs CBC & Chem 7: 08/25/24 18:36 08/25/24 19:20
--- NOTE | 2024-08-27 13:53 | P.DS ---
Providers Date of admission: 08/25/24 21:03 Attending physician: Philip Nathan Consults: 08/25/24 21:03 Consult Physician Routine Consulting Provider: [facility] Consult Reason/Comments: Chest pain Do you want consulting provider notified?: Yes, Notify in am Primary care physician: Philip Nathan - Discharge Diagnosis(es) (1) Chest pain Current Visit: Yes Status: Acute (2) Fibromyalgia Current Visit: Yes Status: Acute Hospital Course: This is a 54-year-old female who presented to the emergency department with complaints of significant chest pressure. Patient is currently undergoing a workup for fibromyalgia with Dr. Blanc, and also complaints of lower extremity calf pain. Patient's troponins have been negative. Cardiology has seen and evaluated patient. Currently awaiting results of echo. Patient has not had any further chest pain and her vitals have been stable. Patient seen and evaluated by nurse practitioner, physician in agreement with plan. Patient Condition at Discharge: Stable Plan - Discharge Summary Discharge Rx Participant: No New Discharge Prescriptions: No Action methocarbamoL [Robaxin-750] 750 mg PO Q6H PRN PRN Reason: Pain Zinc Gluconate [Zinc] 50 mg PO DAILY Pyridoxine HCl (Vitamin B6) [Vitamin B-6] 100 mg PO DAILY Acetaminophen-Codeine 300-30mg [Tylenol w/codeine #3] 1 tab PO Q6H PRN PRN Reason: Pain Gabapentin [Neurontin] 100 mg PO TID Gabapentin 600 mg PO TID Cholecalciferol (Vitamin D3) [Vitamin D3 (50 Mcg = 2000 Iu)] 50 mcg PO DAILY Ascorbic Acid/Multivit-Min [Emergen-C 1,000 mg Packet] 1,000 mg PO DAILY ALPRAZolam [Xanax] 0.25 mg PO DAILY PRN PRN Reason: Anxiety DULoxetine HCL [Cymbalta] 30 mg PO BID Discharge Medication List Gabapentin 600 mg PO TID 10/10/22 [History] Gabapentin [Neurontin] 100 mg PO TID 10/10/22 [History] ALPRAZolam [Xanax] 0.25 mg PO DAILY PRN 08/26/24 [History] Acetaminophen-Codeine 300-30mg [Tylenol w/codeine #3] 1 tab PO Q6H PRN 08/26/24 [History] Ascorbic Acid/Multivit-Min [Emergen-C 1,000 mg Packet] 1,000 mg PO DAILY 08/26/24 [History] Cholecalciferol (Vitamin D3) [Vitamin D3 (50 Mcg = 2000 Iu)] 50 mcg PO DAILY 08/26/24 [History] DULoxetine HCL [Cymbalta] 30 mg PO BID 08/26/24 [History] Pyridoxine HCl (Vitamin B6) [Vitamin B-6] 100 mg PO DAILY 08/26/24 [History] Zinc Gluconate [Zinc] 50 mg PO DAILY 08/26/24 [History] methocarbamoL [Robaxin-750] 750 mg PO Q6H PRN 08/26/24 [History] Follow up Appointment(s)/Referral(s): Philip Nathan MD [Primary Care Provider] - 1-2 days
[2024-08-27 14:45] VITALS: BP 136/58; PULSE 65; TEMP 98.1
== END 2024-08-27 14:44 | disposition home or self-care (01) ==
LOC: EC 17:52 → 1SOBS 21:03
PROVIDERS: ADMIT Family Medicine; ATTEND Family Medicine
DX: R07.89 Other chest pain (principal); M79.7 Fibromyalgia; E87.6 Hypokalemia; R06.4 Hyperventilation; R55 Syncope and collapse; Q07.00 Arnold-Chiari syndrome without spina bifida or hydrocephalus; F41.9 Anxiety disorder, unspecified; E66.9 Obesity, unspecified; Z68.34 Body mass index [BMI] 34.0-34.9, adult; G50.0 Trigeminal neuralgia; I47.19 Other supraventricular tachycardia; Z79.899 Other long term (current) drug therapy; Z88.6 Allergy status to analgesic agent; Z87.39 Personal history of other diseases of the musculoskeletal system and connective tissue
CPT/HCPCS: 96372 ×2; 96376; 96361; 96374; 96375; 99285; 36415; 93005; 93306; 83880; 80061; 80053; 84443; 83690; 83735; 84484 ×2; 85025; 85610; 85730; 83036; 71046; G0378 ×3; J3360; J2405; J1650 ×2; J2270

== ENCOUNTER → 2024-08-31 | Outpatient (CLI) | payer BC ==
--- NOTE | 2024-08-31 11:45 | CA ---
Stress Echo Report Laya Iqbal Age: 54 Gender: F : 1970 Exam Date: 08/31/2024 09:28 Exam Location: [place] [facility] Ht (in): 63 Wt (lb): 194 Ordering Physician: Serene Valencia MD ([id number]) Referring Physician: ESRENE VALENCIA,, [employer]: [employer] Technologist Procedure CPT: Indication: R07.9 CHEST PAIN ICD-9 Codes: Rhythm: Patient History: Cardiac Medications: gabapentin, zyrtec, pantoprozole, zymbalta, metoprolol, acetometophen, tramadol, xanax Medications in past 24 hours: Contrast: N/A Stress Results Protocol: Quintin Total dose(mL): NA Exercise Duration (min:sec): 6:[address] Depression (mm): Angina Score: Villanueva Score: METS: 7.1 Resting HR: 80 Resting BP: 143 / 85 Peak HR: 159 Peak BP: 171 / 73 Max Predicted HR: 165 96 % Max Predicted HR Target HR: 140 Double Product: [id number] Stress Summary: BP Response: Reason for Termination: Reached target heart rate or work-load Cardiac Symptoms: No symptoms ECG Analysis Resting ECG: Stress ECG: Arrhythmia: Echo Analysis Resting Echo: Peak Echo Analysis: MEASUREMENTS (Male/Female) Normal Values CONCLUSIONS Baseline EKG reveals a normal sinus rhythm without significant ST-T changes. Patient walked for 6 minutes and achieved a maximal heart rate of 159 bpm which is well above 85% of predicted maximal. She did not have any anginal symptoms. There was no arrhythmia and there were no ST segment changes to indicate ischemia. By EKG criteria this is a negative stress test with fair exercise capacity Baseline echo images revealed normal wall motion and wall thickening of all segments. At peak exercise there was excellent augmentation of all segments with improved contractility overall suggesting that there is no evidence of stress-induced ischemia on the stress echocardiogram. Final impression: This is a normal stress test and normal stress echocardiogram with fair exercise capacity Dr. Serene Valencia MD (Electronically Signed) Final Date: 31 Aug 2024 11:44
== END | disposition home or self-care (01) ==
LOC: RADNMMAIN 09:03
PROVIDERS: ATTEND Internal Medicine Interventional Cardiology
DX: R07.9 Chest pain, unspecified (principal)
CPT/HCPCS: 93351